=== PATIENT | female | born 1990 | race Caucasian/White ===

== ENCOUNTER 2020-08-28 16:50 | Emergency (ER) | payer OTHER ==
[~2020-08-28 16:50] MED LIST: BUSPIRONE HCL15 MG PO; COLACE 100MG C100 MG PO; IBUPROFEN600 MG PO; KEFLEX CAP 500500 MG PO; LORTAB 5-325 M1 EACH PO; MIRALAX 119 GR119 GM PO; NORCO 5-325 TA1 EACH PO; NORFLEX 100 MG100 MG PO; PYRIDIUM100 MG PO; RESTORIL30 MG PO; SPRINTEC 28 DA1 EACH PO; YAZ 28 TABLET1 EACH PO; ZOLOFT100 MG PO
[2020-08-28 20:03] LABS: HEMOGLOBIN 13.2 gm/dl (12.3-15.3); RED BLOOD COUNT 4.9 M/UL (4.00-5.10); WHITE BLOOD COUNT 6.4 K/UL (4.5-11.0)
[2020-08-28 20:28] LABS: BUN/CREATININE RATIO 19 (0-10)
[2020-08-28] MEDS ORDERED: LODINE CAP 300300 MG PO (22:53)
[2020-08-28] MEDS ORDERED: BENTYL 20MG TAB20 MG PO (22:53)
[2020-08-28] MEDS ORDERED: ZOFRAN ODT 4 MG4 MG PO (22:53)
== END 2020-08-28 22:09 | disposition home or self-care (01) ==
LOC: ER1 16:50
PROVIDERS: Physician Assistant
DX: R10.812 Left upper quadrant abdominal tenderness (principal); Z87.19 Personal history of other diseases of the digestive system; Z90.49 Acquired absence of other specified parts of digestive tract; Z90.710 Acquired absence of both cervix and uterus
CPT/HCPCS: 80053; 81001; 83690; 84703; 85025; 87086; 93005; 96365; 96375; 99284; J0696; J1885; J2405; Q9967

== ENCOUNTER 2021-07-14 10:08 | Emergency (ER) | payer OTHER ==
[~2021-07-14 10:08] MED LIST changes: +BENTYL 20MG TAB20 MG PO; +LODINE CAP 300300 MG PO; +ZOFRAN ODT 4 MG4 MG PO
== END 2021-07-14 14:58 | disposition home or self-care (01) ==
LOC: ER1 10:08
DX: S80.01XA Contusion of right knee, initial encounter (principal); Z90.710 Acquired absence of both cervix and uterus; W19.XXXA Unspecified fall, initial encounter
CPT/HCPCS: 73564; 99283